=== PATIENT | female | born 1995 | race Caucasian/White ===

== ENCOUNTER 2023-07-14 15:26 | Emergency (ER) | payer MEDICAID, SELFPAY ==
[2023-07-14 15:27] VITALS: BP 126/90; PULSE 88; RESP 19; TEMP 36.7; O2SAT 99; BMI 30.7
--- NOTE | 2023-07-14 15:38 | RAD_ITS ---
STUDY: X-RAY - PELVIS REASON FOR EXAM: Female, 28 years old. Trauma TECHNIQUE: One view of the pelvis was obtained. COMPARISON: None. FINDINGS: There is a non-specific bowel gas pattern. Normal visualized soft tissue structures. Normal bilateral iliac wings, sacroiliac joints and visualized sacrum. Normal visualized bilateral superior and inferior pubic rami. Normal pubic symphysis. Normal ischial tuberosities. Normal visualized right femoral head. Normal right acetabulum. Normal right hip joint. Normal visualized left femoral head. Normal left acetabulum. Normal left hip joint. RAD/Pelvis 1 or 2 Views IMPRESSION: Normal x-ray examination of the pelvis. Electronically Signed: Tr Red MD at 17:18 EST ,
[2023-07-14] MEDS: Ondansetron 4 MG/2 ML Vial IV (15:47)
[2023-07-14] MEDS: morphine 8 MG/ML Syringe 6 MG IV (15:47)
--- OUTSIDE RECORDS SUMMARY | 2023-07-14 15:51 | XMS RPT_ITS | CCD ---
Author Name Unknown Address [address] [place] [address] Organization [facility] Care Team Providers Care Asbestos Pipe Supervisor Name Role Phone JEREMY LLOYD Unavailable Unavailable UNASSIGNED, DOCTOR Unavailable Unavailable Unavailable Primary Care Provider Pranav Pino Primary Care Provider [phone] Pranav Elena DO Primary Care Provider Pranav Elena DO Primary Care Provider Required, No Pcp Unavailable Unavailable Gautam Burgos Unavailable MD Gautam Burgos Attending Unavai ROBERT Turner Attending Unavailable PRANAV ELENA Primary Care PRANAV Pino Primary Care ROBERT Kurtz Attending Unavailable Allergies Allergy Classification Reported Allergen(s) Allergy Type Date of Onset Reaction(s) Facility (12 sources) Amoxicillin-Pot Clavulanate Propensity to adverse reactions to drug 01-05-2013 Anaphylaxis [place] (2 sources) Amoxicillin / Clavulanate Drug Allergy Unknown Formerly [facility], [facility] Medications Current Medications Medication Drug Class(es) Dates Sig (Normalized) Sig (Original) azithromycin 250 mg oral tablet (3 sources) Macrolide Antimicrobial Start: 03-28-2021 End: 04-07-2021 take 2 tablets by mouth once daily azithromycin (ZITHROMAX Z-DAISHA) 250 MG tablet Indications: Acute pharyngitis, unspecified etiology TAKE 500MG PO DAY ONE... 250MG PO DAY TWO THROUGH FIVE DISPENSE 6 TABS NO REFILLS 1 packet 0 03/28/2021 04/07/2021 Active Completed/Discontinued Medications Medication Drug Class(es) Dates Sig (Normalized) Sig (Original) brompheniramine maleate 0.4 mg/ml / dextromethorphan hydrobromide 2 mg/ml / pseudoephedrine hydrochloride 6 mg/ml oral solution (7 sources) alpha-Adrenergic Agonist, Uncompetitive E-cvwzuy-X-aspartat e Receptor Antagonist, Sigma-1 Agonist Start: 08-17-2020 End: 05-03-2021 take 5 mL by mouth four times daily as needed for cough brompheniramine-p seudoephedrine-DM 2-30-10 MG/5ML syrup Take 5 mLs by mouth 4 times daily as needed for Congestion or Cough 120 mL 0 08/17/2020 05/03/2021 Discontinued (Therapy completed) Problems Active Problems Problem Classification Problem Date Documented Date Episodic/Chronic Allergic reactions (1 source) Allergy status to penicillin; Translations: [Allergy status to penicillin] Onset: 04-25-2022 Episodic Chronic obstructive pulmonary disease and bronchiectasis (1 source) Chronic obstructive pulmonary disease and bronchiectasis Onset: 04-29-2018 Malaise and fatigue (1 source) Fatigue; Translations: [Fatigue, unspecified type] Episodic Nonspecific chest pain (4 sources) Chest wall pain; Translations: [Chest pain, unspecified] Onset: 04-25-2022 Episodic Other injuries and conditions due to external causes (1 source) Injury of head; Translations: [Injury of head, initial encounter] Episodic Other lower respiratory disease (1 source) Cough; Translations: [Cough] Onset: 04-29-2018 Episodic Other lower respiratory disease (2 sources) Shortness of breath; Translations: [Shortness of breath] Onset: 04-25-2022 Episodic Other screening for suspected conditions (not mental disorders or infectious disease) (1 source) Other specified abnormal findings of blood chemistry; Translations: [Other specified abnormal findings of blood chemistry] Onset: 04-25-2022 Episodic Spondylosis; intervertebral disc disorders; other back problems (10 sources) Inflammation of sacroiliac joint; Translations: [Sacroiliitis, not elsewhere classified] Onset: 04-05-2020 04-05-2020 Chronic Superficial injury; contusion (2 sources) Contusion of scalp; Translations: [Contusion of face] Episodic Unclassified (1 source) Cough / R05(ICD-10) Onset: 04-29-2018 Unclassified (1 source) Acute sinusitis, unspecified / J01.90(ICD-10) Onset: 04-29-2018 Unclassified (1 source) Unspecified Eustachian tube disorder, unspecified ear / H69.90(ICD-10) Onset: 04-29-2018 Unclassified (2 sources) FLUID ON LUNGS. CHEST PAIN. 04-24-2022 Past or Other Problems Problem Classification Problem Date Documented Da te Episodic/Chronic Bacterial infection; unspecified site (1 source) Other specified bacterial agents as the cause of diseases classified elsewhere; Translations: [Other specified bacterial agents as the cause of diseases classified elsewhere] Onset: 02-10-2022 Episodic Inflammatory diseases of female pelvic organs (2 sources) Bacterial vaginosis; Translations: [Acute vaginitis] Onset: 02-10-2022 Episodic Other upper respiratory infections (7 sources) Acute sinusitis; Translations: [Upper respiratory infection] Onset: 02-10-2022 Episodic Results Test Name Value Interpretation Reference Range Facil ity Vital Signs Date Time Vital Sign Value Performing Clinician Facility 04-25-2022 04:00-0500 Body temperature 96.8 [degF] No Pcp Required [facility]ly [facility], [facility] 04-25-2022 04:00-0500 Diastolic blood pressure 84 mm[Hg] No Pcp Required [facility], [facility] 04-25-2022 04:00-0500 Heart rate 73 /min No Pcp Required [facility], [facility] 04-25-2022 04:00-0500 Respiratory rate 16 /min No Pcp Required [facility], [facility] 04-25-2022 04:00-0500 SaO2% (BldA) [Mass fraction] 98 % No Pcp Required [facility], [facility] 04-25-2022 04:00-0500 Systolic blood pressure 117 mm[Hg] No Pcp Required [facility] 02-10-2022 10:59-0400 Body height 147.3 cm Robert Womack MD Work Phone: [facility] 02-10-2022 10:59-0400 Body mass index (BMI) [Ratio] 27.17 kg/m2 Robert Womack MD Work Phone: [facility] 02-10-2022 10:59-0400 Body temperature 97.5 [degF] Robert Womack MD Work Phone: [facility] [employer] 02-10-2022 10:59-0400 Body weight 58.97 kg Robert Womack MD Work Phone: [facility] [employer] 02-10-2022 10:59-0400 Diastolic blood pressure 78 mm[Hg] Robert Womack MD Work Phone: [facility] [employer] 02-10-2022 10:59-0400 Heart rate 82 /min Robert Womack MD Work Phone: [facility] [employer] 02-10-2022 10:59-0400 Respiratory rate 16 /min Robert Womack MD Work Phone: [facility] [employer] 02-10-2022 10:59-0400 SaO2% (BldA) [Mass fraction] 98 % Robert Womack MD Work Phone: [facility] [employer] 02-10-2022 10:59-0400 Systolic blood pressure 127 mm[Hg] Robert Womack MD Work Phone: [facility] [employer] 05-03-2021 18:39-0500 Body temperature 97.5 [degF] Mike Maguire DO Work Phone: [facility] 05-03-2021 18:39-0500 Diastolic blood pressure 64 mm[Hg] Mike Maguire DO Work Phone: [facility] 05-03-2021 18:39-0500 Heart rate 81 /min Mike Maguire DO Work Phone: [facility] 05-03-2021 18:39-0500 Respiratory rate 16 /min Mike Maguire DO Work Phone: [facility] 05-03-2021 18:39-0500 SaO2% (BldA) [Mass fraction] 98 % Mike Maguire DO Work Phone: [facility] 05-03-2021 18:39-0500 Systolic blood pressure 104 mm[Hg] Mike Maguire DO Work Phone: [facility] 03-28-2021 17:05-0500 Body mass index (BMI) [Ratio] 27.47 kg/m2 Azalia Phillips MD Work Phone: [facility] 03-28-2021 17:05-0500 Body temperature 97.5 [degF] [facility] 03-28-2021 17:05-0500 Body weight 61.69 kg Azalia Phillips MD Work Phone: [facility] 03-28-2021 17:05-0500 Diastolic blood pressure 83 mm[Hg] Azalia Phillips MD Work Phone: [facility] 03-28-2021 17:05-0500 Heart rate 75 /min Azalia Phillips MD Work Phone: [facility] 03-28-2021 17:05-0500 Respiratory rate 16 /min Azalia Phillips MD Work Phone: [facility] 03-28-2021 17:05-0500 SaO2% (BldA) [Mass fraction] 98 % Azalia Phillips [facility] 03-28-2021 17:05-0500 Systolic blood pressure 120 mm[Hg] Azalia Phillips [facility] 08-17-2020 11:11-0400 BMI (Body Mass Index) 27.47 kg/m2 Azalia Arce [facility] Work Phone: 08-17-2020 11:11-0400 Body Temperature 97.5 [degF] Azalia Phillips [facility] Work Phone: 08-17-2020 11:11-0400 Body weight 61.69 kg [facility]: 08-17-2020 11:11-0400 BP Diastolic 65 mm[Hg] [facility] Work [facility]: 08-17-2020 11:11-0400 BP Systolic 108 mm[Hg] [facility] Work Phone: 08-17-2020 11:11-0400 Pulse (Heart Rate) 80 /min Careywoodyash [facility] Work Phone: 08-17-2020 11:11-0400 Pulse Oximetry 98 % [facility] Work Phone: 08-17-2020 11:11-0400 Respiratory Rate 16 /min Careywoodyash Claude [facility] Work Phone: 06-01-2020 14:08-0500 BMI (Body Mass Index) 26.26 kg/m2 [facility] [place] 06-01-2020 14:08-0500 Body Temperature 96.1 [degF] [facility] [place] 06-01-2020 14:08-0500 Body weight 58.97 kg [facility] [place] 06-01-2020 14:08-0500 BP Diastolic 74 mm[Hg] [facility] [place] 06-01-2020 14:08-0500 BP Systolic 126 mm[Hg] [facility] [place] 06-01-2020 14:08-0500 Height 149.9 cm [facility] [place] 06-01-2020 14:08-0500 Pulse (Heart Rate) 80 /min Pranav Elena [facility], [place] 06-01-2020 14:08-0500 Pulse Oximetry 99 % [facility] [place] 06-01-2020 14:08-0500 Respiratory Rate 18 /min Pranav Simonmichelleraeannarthur [facility], [place] 04-18-2020 12:20-0500 BMI (Body Mass Index) 25.85 kg/m2 [facility], [place] 04-18-2020 12:20-0500 Body Temperature 97.5 [degF] [facility] 04-18-2020 12:20-0500 Body weight 58.06 kg [facility], [place] 04-18-2020 12:20-0500 BP Diastolic 82 mm[Hg] [facility] 04-18-2020 12:20-0500 BP Systolic 119 mm[Hg] [facility], [place] 04-18-2020 12:20-0500 Pulse (Heart Rate) 84 /min [facility], [place] 04-18-2020 12:20-0500 Pulse Oximetry 97 % [facility], [place] 04-18-2020 12:20-0500 Respiratory Rate 16 /min [facility] 04-05-2020 15:17-0500 BP Diastolic 73 mm[Hg] [facility] 04-05-2020 15:17-0500 BP Systolic 115 mm[Hg] [facility] 04-05-2020 15:17-0500 Pulse (Heart Rate) 78 /min [facility] 04-05-2020 15:17-0500 Pulse Oximetry 99 % [facility] 04-05-2020 15:17-0500 Respiratory Rate 12 /min [facility] 04-05-2020 14:41-0500 Body Temperature 96.91 [degF] [facility] 03-30-2020 08:57-0500 BMI (Body Mass Index) 26.26 kg/m2 [facility] 03-30-2020 08:57-0500 Body weight 58.97 kg [facility] 03-30-2020 08:57-0500 Height 149.9 cm [facility] 12-20-2019 10:58-0400 BMI (Body Mass Index) 25.65 kg/m2 [facility] 12-20-2019 10:58-0400 Body Temperature 96.91 [degF] [facility] [place], [place] 12-20-2019 10:58-0400 Body weight 57.61 kg [facility] 12-20-2019 10:58-0400 BP Diastolic 80 mm[Hg] [facility] 12-20-2019 10:58-0400 BP Systolic 115 mm[Hg] [facility] 12-20-2019 10:58-0400 Height 149.9 cm [facility] 12-20-2019 10:58-0400 Pulse (Heart Rate) 76 /min [facility] 12-20-2019 10:58-0400 Pulse Oximetry 98 % [facility] 12-20-2019 10:58-0400 Respiratory Rate 16 /min [facility], [place] 12-01-2019 13:31-0400 BMI (Body Mass Index) 22.29 kg/m2 [facility], [place] 12-01-2019 13:31-0400 Body weight 46.72 kg [facility] , [place] 12-01-2019 13:31-0400 Height 144.8 cm [facility] , [place] 12-01-2019 13:30-0400 Body Temperature 98.2 [degF] [facility] [place] 12-01-2019 13:30-0400 BP Diastolic 84 mm[Hg] [facility] , [place] 12-01-2019 13:30-0400 BP Systolic 134 mm[Hg] [facility] , [place] 12-01-2019 13:30-0400 Pulse (Heart Rate) 76 /min [facility], [place] 12-01-2019 13:30-0400 Pulse Oximetry 99 % [facility] , [place] 12-01-2019 13:30-0400 Respiratory Rate 16 /min [facility] [place], [place] Encounters Encounter Date Encounter Type Care Provider Facility Start: 09-21-2022 End: 09-21-2022 Emergency department patient visit ROBERT WOMACK [facility] Start: 04-24-2022 End: 04-25-2022 Emergency department patient visit Gautam Darby ED Bed 17 Start: 02-10-2022 End: 02-10-2022 Emergency department patient visit PRANAV ELENA [facility] Start: 02-10-2022 End: 02-10-2022 Emergency department patient visit Robert Womack MD Work Phone: [facility] Emergency Department Procedures Date Procedure Procedure Detail Performing Clinician Start: 09-21-2022 Urnls dip stick/tabl et rgnt auto w/o microscopy ROBERT WOMACK Start: 04-24-2022 End: 04-24-2022 EKG impression Trudy Meza Start: 03-28-2021 Iaadiadoo streptococ cus group a Azalia Phillips MD Work Phone: Start: 04-05-2020 Fluoroscopy during operation Neena Archuleta Work Phone: Start: 04-05-2020 Urine test visual color cmprsn meths Neena Archuleta Work Phone: Start: 03-31-2020 COVID-19 AMBULATORY Khanh alexandra Archuleta Work Phone: Start: 01-15-2020 25 hydroxy includes fractions if performed Pranav Elena Work Phone: Start: 01-15-2020 Assay of thyroid stimulating hormone tsh Pranav Elena Work Phone: Start: 01-15-2020 Blood count complete auto&auto difrntl wbc Pranav Marroquin K[employer] Work Phone: Start: 01-15-2020 VITAMIN B12 & FOLATE Je rome Marroquin Kassy Work Phone: Start: 12-01-2019 Ct cervical spine w/ o contrast material Fabiola Marroquin [employer] Work Phone: Start: 12-01-2019 Ct head/brain w/o co ntrast material Fabiola A Enevatean Work Phone: Start: 12-01-2019 Ct maxillofacial w/o contrast material Fabiola Marroquin [employer] Work Phone: Plan of Treatment Date Care Activity Detail Author Start: 10-10-2027 DTaP/Tdap/Td vaccine (8 - Td or Tdap) DTaP/Tdap/Td vaccine (8 - Td or Tdap) [facility] Start: 10-10-2027 DTaP/Tdap/Td vaccine (8 - Td) DTaP/Tdap/Td vaccine (8 - Td) [place] Start: 12-28-2022 Depression Screen Depression Screen [facility] Start: 12-12-2021 Influenza vaccination Flu vaccine (# 1) [facility] Start: 01-12-2021 Influenza vaccination [facility] Start: 04-06-2020 End: 03-30-2021 COVID-19 Ambulatory COVID-19 Ambulatory Lab Routine Sacroiliitis (HCC) Expected: 04/06/2020, Expires: 03/30/2021 [place] Immunizations Immunization Date Immunization Notes Care Provider Fa eneida 10-09-2017 Td, unspecified formulation [facility] 02-17-2011 varicella virus vaccine Pranav pate [place] 02-27-2010 meningococcal polysaccharide (groups A, C, Y and W-135) diphtheria toxoid conjugate vaccine (MCV4P) [place] 02-12-2010 poliovirus vaccine, inactivated [facility]av [facility] 12-29-2009 tetanus toxoid, redu jeanmarie diphtheria toxoid, and acellular pertussis vaccine, adsorbed [facility], [place] 04-01-2009 novel influenza-H1N1 -09, preservative-free, injectable [facility], [place] 12-29-2008 hepatitis B vaccine, pediatric or pediatric/adolescent dosage [facility], [place] 07-14-2002 measles, mumps and rubella virus vaccine [facility], [place] 08-12-2001 diphtheria, tetanus toxoids and pertussis vaccine [facility], [place] 08-12-2001 poliovirus vaccine, inactivated [facility], [place] 02-13-2000 diphtheria, tetanus toxoids and acellular pertussis vaccine, unspecified formulation [facility] , [place] 02-13-2000 haemophilus influenz ae type b conjugate and Hepatitis B vaccine [facility], [place] 02-13-2000 haemophilus influenz ae type b vaccine, PRP-T conjugate [facility], [place] 02-13-2000 hepatitis B vaccine, adult dosage Mike Maguire [email or web address] Work Phone: [facility] Work Phone: 02-13-2000 hepatitis B vaccine, unspecified formulation [facility] , [place] 02-13-2000 measles, mumps and rubella virus vaccine [facility], [place] 02-13-2000 poliovirus vaccine, inactivated [facility], [place] 12-29-1998 diphtheria, tetanus toxoids and pertussis vaccine [facility], [place] 12-29-1998 haemophilus influenz ae type b vaccine, PRP-T conjugate [facility], [place] 12-29-1998 measles, mumps and rubella virus vaccine [facility], [place] 12-29-1998 trivalent poliovirus vaccine, live, oral [facility], [place] 1997 diphtheria, tetanus toxoids and acellular pertussis vaccine, unspecified formulation [facility] , [place] 1997 haemophilus influenz ae type b conjugate and Hepatitis B vaccine [facility], [place] 1997 haemophilus influenz ae type b vaccine, PRP-T conjugate [facility], [place] 1997 hepatitis B vaccine, adult dosage Mike Maguire DO Work Phone: [facility] Phone: 1997 hepatitis B vaccine, unspecified formulation [facility] , [place] 1997 poliovirus vaccine, inactivated [facility], [place] 1997 haemophilus influenz ae type b conjugate and Hepatitis B vaccine [facility], [place] 1997 diphtheria, tetanus toxoids and pertussis vaccine [facility], [place] 1997 haemophilus influenz ae type b vaccine, PRP-T conjugate [facility], [place] 1997 hepatitis B vaccine, pediatric or pediatric/adolescent dosage [facility], [place] 1997 poliovirus vaccine, inactivated [place], [place] Payers Date Payer Category Payer Unknown [employer] [place]ICA[place] [id number] 2015-Present [phone] CLAIMS DEPARTMENT [address] [place] [address] [id number] 2015 Unknown [id number] 1997 Unknown [id number] 1997 Unknown [id number] 1997 Unknown [id number] 1997 Unknown [id number] Self-pay Unknown [employer] Social History Date Type Detail Facility Start: 10-09-2017 End: 12-28-2021 Tobacco smoking status NHIS Never smoker [place] Start: 10-09-2017 End: 12-28-2021 Tobacco use and exposure Never used [place] Start: 10-09-2017 End: 02-10-2022 Alcohol intake Current non-drinker of alcohol (finding) [place] Start: 1995 Sex Assigned At Not on file [place] Start: 01-31-2022 End: 02-10-2022 Exposure to SARS-CoV-2 (event) Not sure [place] Exposure to SARS-CoV -2 (event) Yes [place] History of tobacco use Passive smoker [facility] [employer] Phone: Start: 12-28-2021 History [employer]OH [employer] Phone: Start: 12-28-2021 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 The following attachments cannot be sent through Care Everywhere.Bacterial Vaginosis ([place])URI (Upper Respiratory Infection) ([place])Sinus Rinse ([place])documented in this encounter [facility] [employer] Phone: Evaluation note Note Date & Type Note Facility documented in this encounter [employer] Phone: Evaluation note Note Date & Type Note Facility documented in this encounter [employer] Phone: Evaluation note Note Date & Type Note Facility documented in this encounter [facility] [employer] Phone: Hospital Discharge instructions Attachments Note Date & Type Note Facility Hospital Discharge instructions The following attachments cannot be sent through Care Everywhere.Sore Throat ([place])documented in this encounter [employer] Phone: Hospital Discharge instructions Attachments Note Date & Type Note Facility Hospital Discharge instructions The following attachments cannot be sent through Care Everywhere.Sinusitis ([place])documented in this encounter [employer] Phone: Summary Purpose Family History No Family History Records FoundNo Family History Records FoundNo Family History Records FoundNo Family History Records FoundNo Family History Records Found Advance Directives No Advanced Directives Records FoundDocuments on File Type Date Recorded Patient Director [employer] Advance Directives and Livin g Will 01/05/2013 7:12 PM Advance Directives and Livin g Will 03/03/2013 6:18 PM Power of [employer] Developer Documents on File Type Date Recorded Patient Director [employer] ACP-Advance Directive 01/05/2013 7:12 PM ACP-Advance Directive 03/03/2013 6:18 PM ACP-[employer] Documents on File Type Date Recorded Patient Director [employer] ACP-Advance Directive 01/05/2013 7:12 PM ACP-Advance Directive 03/03/2013 6:18 PM ACP-Power of [employer] Latest Code Status on File Code Status Date Activated Date Inactivated Comments Full Code 04/05/2020 2:38 PM Latest Code Status on File Code Status Date Activated Date Inactivated Comments Full Code 04/05/2020 2:38 PM 04/05/2020 5:21 PM Latest Code Status on File Code Status Date Activated Date Inactivated Comments Full Code 04/05/2020 2:38 PM 04/05/2020 5:21 PM Documents on File Type Date Recorded Patient Director [employer] ACP-[employer] of [employer] Developer ACP-Advance Directive 03/03/2013 6:18 PM ACP-Advance Directive 01/05/2013 7:12 PM Documents on File Type Date Recorded Patient Director [employer]-Advance Directive 03/03/2013 6:18 PM ACP-Advance Directive 01/05/2013 7:12 PM Discharge Instructions * Attachments The following attachments cannot be sent through Care Everywhere. * Contusion ([place]) * Head Injury ([place]) documented in this encounter* Attachments The following attachments cannot be sent through Care Everywhere. * Sinusitis ([place]) documented in this encounter* Instructions* Dorie Aj RN - 04/05/2020 Post-op instruction Block Dr. Archuleta [phone] 1. Rest 12-24 hours following procedure. DO NOT DRIVE till the following day. 2. Keep dressing clean and dry. Do not bathe, shower, or sit in hot tub the day of procedure .You may remove the dressing following A.M. 3. You may return to work/school tomorrow. 4. Drink extra fluids for the next 24 hours. 5. Resume your regular diet. 6. Resume previously prescribed medications. Resume Coumadin, Plavix, NSAIDS, Ibuprofen products 24hours after procedure. 7. You need to have a responsible adult stay with you this evening. 8. If you experience any discomfort relating to this procedure, you may take Tylenol 2 tablets every 4 hrs as needed for pain and/or apply ice to the affected area. 9. Please follow up with Dr. Archuleta or Dr. Laurent. If you were a hip injection follow up with your orthopedic Doctor. 10. If you experience any unusual symptoms or problems, call your physician s answering service at [phone] or go directly to [facility] s Emergency Department. documented in this encounter* Attachments The following attachments cannot be sent through Care Everywhere. * Chest Pain: Musculoskeletal ([place]) * Breast Pain ([place]) documented in this encounter* Attachments The following attachments cannot be sent through Care Everywhere. * Sinusitis ([place]) documented in this encounter* Attachments The following attachments cannot be sent through Care Everywhere. * URI (Upper Respiratory Infection): Viral ([place]) * Coronavirus Disease (COVID-19): General Info ([place]) * Coronavirus Disease (COVID-19): Isolation ([place]) documented in this encounter Assessments Diagnosis Injury of head, initial encounter Contusion of scalp, initial encounter Contusion of face, initial encounter Diagnosis Acute sinusitis, recurrence not specified, unspecified location Diagnosis Fatigue, unspecified type Diagnosis Sacroiliitis (HCC) Sacroiliitis, not elsewhere classified Diagnosis Right-sided chest wall pain- Primary Painful respiration Diagnosis Sacroiliitis (HCC) Sacroiliitis, not elsewhere classified Diagnosis Upper respiratory tract infection, unspecified type- Primary Reason for Referral Status Reason Specialty Diagnoses / Procedures Referred By Contact Referred To Contact Pending Review Radiology Diagnoses Sacroiliitis (HCC) Procedures FLUORO FOR SURGICAL PROCEDURES Neena Archuleta DO [address] [place] [address] Additional Source Comments INFORMATION SOURCE (unrecogn ized section and content) DATE CREATED AUTHOR AUTHOR'S ORGANIZ ATION 01/05/2022 [facility] DATE CREATED AUTHOR AUTHOR'S ORGANIZ ATION 05/06/2022 [facility] DATE CREATED AUTHOR AUTHOR'S ORGANIZ ATION 05/10/2022 [facility] DATE CREATED AUTHOR AUTHOR'S ORGANIZ ATION 09/24/2022 [facility] Reason for Visit (unrecogniz ed section and content) Reason Comments Congestion pt c/o slight cough congestion and sore throat for 1 week No fever Status Reason Specialty Diagnoses / Procedures Referre d By Contact Referred To Contact Diagnoses Sacroiliitis (HCC) SACROILIITIS Procedures OR INJECT SI JOINT ARTHRGRPHY&/ANES/STERO ID W/IMAGE RIGHT SACROILIAC JOINT INJECTION UNDER X-RAY GUIDANCE Neena Archuleta DO [address] [place] [address] [facility] Reason Comments Other PAINFUL AREA WITH PA LPATION TO UPPER STERNUM X 6 MONTHS Reason Comments Sinusitis with alot of drainag e onset 3 days ago. PCP was unable to see her anytime soon. Reason Comments Pharyngitis I feel miserable, t hroat/eyes swelling shut . Onset yesterday headache and then awakened at 3:30 am with symptoms and used Dayquil. 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 Concern For COVID-19 Pt has concern for COVID and possibly had it May 2019 when testing wasn't available. Reason Comments Pharyngitis onset 2 days ago. Bryn alcala has tried some OTC meds with out relief. Patient did a home covid test yesterday that was neg. Reason Comments Covid Testing My boyfriend has CO VID and I feel like crap. I did an at home test and it was negative. I had COVID before about 4 months ago . Requesting antibiotic. Cough Onset today headach e, cough, drowsy, heavy eyes . Used Mucinex at home. 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 Reason Comments Sinusitis Sinus drainage and c ough onset 3 days ago. Other History of BV states she has it back again. Patient has discharge and itching. Ordered Prescriptions (unrec ognized section and content) Prescription Sig Dispensed Refills Start Date End Da te azithromycin (ZITHROMAX Z-DAISHA) 250 MG tabletIndications:Acute pharyngitis, unspecified etiology TAKE 500MG PO DAY ONE... 250MG PO DAY TWO THROUGH FIVE DISPENSE 6 TABS NO REFILLS 1 packet 0 03/28/2021 04/07/2021 Prescription Sig Dispensed Refills Start Date End Da te doxycycline hyclate (VIBRA-TABS) 100 MG tablet Take 1 tablet by mouth 2 times daily for 10 days 20 tablet 0 05/03/2021 05/13/2021 Prescription Sig Dispensed Refills Start Date End Da te sodium chloride (OCEAN) 0.65 % nasal spray 1 spray by Nasal route as needed for Congestion 88 mL 0 02/10/2022 Dextromethorphan-guaiFE Nesin (MUCINEX DM MAXIMUM STRENGTH) 60-1200 MG TB12 Take 1 tablet by mouth 2 times daily 28 tablet 0 02/10/2022 metroNIDAZOLE (FLAGYL) 500 MG tablet Take 1 tablet by mouth 2 times daily for 7 days 14 tablet 0 02/10/2022 02/17/2022 Care Teams (unrecognized sec tion and content) [employer]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 FOR RECORDS PERTAINING TO PATIENTS WHO ARE OR HAVE BEEN ENROLLED IN A CHEMICAL DEPENDENCY/SUBSTANCEABUSE PROGRAM, SOME INFORMATION MAY BE OMITTED. This clinical summary was aggregated from multiple sources. Caution should be exercised in using it in the provision of clinical care. This summary normalizes information from multiple sources, and as a consequence, information in this document may materially change the coding, format and clinical context of patient data. In addition, data may be omitted in some cases. CLINICAL DECISIONS SHOULD BE BASED ON THE PRIMARY CLINICAL RECORDS. [facility] [employer] [facility]. provides no warranty or guarantee of the accuracy or completeness of information in this document.
--- NOTE | 2023-07-14 16:05 | RAD_ITS ---
STUDY: X-RAY - RIGHT FEMUR REASON FOR STUDY: Female, 28 years old. Trauma TECHNIQUE: 2 view(s) of the femur. COMPARISON: None. FINDINGS: Normal visualized femur. Normal visualized soft tissue structure. RAD/Femur Min 2 Views IMPRESSION: Normal x-ray examination of the femur. Electronically Signed: Tr Red MD at 17:17 EST ,
--- NOTE | 2023-07-14 16:10 | EX.ED.GENINJ ---
HPI History of Present Illness Chief Complaint: Trauma Detail of Chief Complaint: Kicked by horse and right thigh. Informant: patient Onset/Context/Timing Onset: Today Location of pain/injuries: Right thigh Quality of Pain: Sharp, Aching and Burning Current Severity: 8/10 Maximum Severity: 10/10 Worsened by: Movement of leg Relieved by: Rest Associated Symptoms Associated Symptoms: Positive for Inability to ambulate; Negative for Parasthesias, Weakness, Loss of function or Loss of consciousness Narrative Narrative: Patient with no past medical history presents to the ED after being kicked by a horse in the right thigh approximately 1 hour prior to arrival. Patient reports she was in a sale barn when the injury occurred. She denies hitting her head or being knocked out from the injury. However she does report she blacked out from the pain. Patient is unable to ambulate. She took 100 mg of ibuprofen prior to arrival. She denies use of blood thinners. Tetanus Immunization: Unknown Prior similar symptoms: No Recent Illness/Hospitalization: No PFSH PFSH Home Medications oxycodone-acetaminophen 5 mg-325 mg tablet (Percocet) 1 tab PO Q4H PRN pain 3 days #14 tabs 07/14/23 [Rx Last Taken Unknown] Allergy/AdvReac Type Severity Reaction Status Date / Time amoxicillin [From Augmentin] Allergy Severe Swelling Verified 07/14/23 15:29 clavulanic acid Allergy Severe Swelling Verified 07/14/23 15:29 [From Augmentin] Social History Smoking Status: Never smoker ROS ROS ED Constitutional Constitutional ED: Denies chills, fever(s) or sweats Eyes Eyes: Denies blurry vision or change in vision ENT ENT ED: Denies rhinorrhea Cardiovascular Cardiovascular: Denies chest pain, palpitations or racing heartbeat Respiratory/Chest Respiratory/Chest: Denies cough, dyspnea or dyspnea on exertion Gastrointestinal Gastrointestinal: Denies abdominal pain, diarrhea, nausea or vomiting Genitourinary Genitourinary ED: Reports LMP (females 10-50) Details: Comment: (Patient reports she does not have menses as she has a Mirena IUD); Denies dysuria, hematuria or urinary frequency Musculoskeletal Musculoskeletal: Reports arthralgias Integumentary Denies abscess, Abrasions or rash Neurologic Neurologic: Denies headache(s) Psychiatric Psychiatric: Denies anxiety Hematologic/Lymphatic Hematologic/Lymphatic: Denies easy bleeding, easy bruising or lymphadenopathy EXAM Physical Exam Narrative Exam Narrative: Patient is awake and alert. No acute distress Const Vital Signs: 07/14/23 15:27 Temperature 98.1 F Temperature Source Temporal Pulse Rate 88 Respiratory Rate 19 H Blood Pressure 126/90 H Blood Pressure Mean 102 Pulse Ox 99 Oxygen Delivery Method Room Air Positive well nourished and well developed General Appearance ED: well developed HEENT HEENT Narrative: Normocephalic atraumatic Eyes PERRL and EOMs intact bilaterally Neck full ROM Neck Narrative: No cervical spine tenderness Chest Wall inspection of chest normal and palpation of chest normal Resp normal respiratory effort and clear to auscultation bilaterally Auscultation: Negative for rales, rhonchi or wheezes Cardio regular rhythm, S1 normal heart sound and S2 normal heart sound GI normal to inspection, nondistended, normoactive bowel sounds and non-tender Auscultation: normoactive bowel sounds Palpation: soft Rectal Exam: visual inspection normal Back/Spine Back/Spine Narrative: Right-sided L3 tenderness radiating to right hip. No obvious injury noted. Extremity Extremity Narrative: Right lateral mid thigh with redness. Mild edema noted to right thigh. Pain with palpation to entire right thigh. No deformity noted. General Extremety ED: Yes edema and tenderness; Negative for deformity General Extremity: edema; Negative for deformity Neuro oriented x3 and CN's II-XII intact bilaterally Sensorium / Orientation: alert Motor Exam: strength 5/5 throughout Psych mental status grossly normal Skin no rashes or lesions noted, no wounds and skin turgor normal MDM MDM MDM Narrative Medical decision making narrative: Right hip and right femur x-rays ordered. Morphine and Zofran ordered for pain. History & Record Review Discussion w/independent historian: Patient and Friend Radiography Diagnostic Testing: Right pelvis and right femur x-rays reveal no evidence of fracture. Management Discussion w/another healthcare provider: Other (Dr Lam, ED provider) Treatment and Re-Evaluation Narrative: Upon reevaluation, patient awake and alert. Patient reports improvement of pain. Imaging discussed with patient. Plan to discharge home with crutches and pain medication. Patient agreeable with plan and to be discharged home with right thigh hematoma. Discharge Plan Triage Chief Complaint: Trauma ED Provider: Bebo Lam Dx/Rx/DC Orders Clinical Impression: Hematoma of right thigh Instructions: ED Soft Tissue Contusion, ED Contusion, Lower Extremity, ED Crutch Walking Prescriptions: New oxycodone-acetaminophen [Percocet] 5-325 mg tablet 1 tab PO Q4H PRN (Reason: pain) 3 Days Qty: 14 0RF Rx Instructions: Percocet as needed for pain. No driving. No alcohol if using. No additional Tylenol if using the Percocet. Primary Care Provider: Care Physician,No Primary Referrals: Quincy Guajardo MD [Med Staff - [employer]ling [employer]ley Mechanic] - 10-14 Days if not better NOT,DEFINED [Non-Staff] - Activity Restrictions/Additional Instructions: Your x-rays show no fracture. Ice and elevate your right leg. Use crutches as needed. Ibuprofen or Percocet as needed for pain. No driving while taking Percocet. Follow-up with your family doctor as needed. Disposition Disposition: Home, Self Care
[2023-07-14 16:41] VITALS: BP 115/89; PULSE 65; RESP 14; TEMP 36.7; O2SAT 99
== END 2023-07-14 16:42 | disposition home or self-care (01) ==
PROVIDERS: Emergency Provider Emergency Medicine; Visit Provider Emergency Medicine
DX: S70.11XA Contusion of right thigh, initial encounter (principal); Z97.5 Presence of (intrauterine) contraceptive device; W55.12XA Struck by horse, initial encounter
CPT/HCPCS: 72170; 73552; 96374; 96375; 99283; A4216; J2405